=== PATIENT | female | born 1985 | race American Indian/Alaskan Native ===

== ENCOUNTER 2019-02-04 21:32 | Emergency (ER) | payer OTHER, SELFPAY ==
[2019-02-04 21:44] VITALS: BP 131/87; PULSE 109; RESP 18; TEMP 36.6; O2SAT 98
[2019-02-04 22:13] LABS: Influenza A and B by PCR Rapid Negative (Negative)
--- NOTE | 2019-02-04 22:53 | ED.FEVER ---
HPI - Fever General Chief Complaint: Fever Stated Complaint: low fever,sore throat, body aches Time Seen by Provider: 02/04/19 22:49 Source: patient Mode of arrival: Ambulatory Limitations: no limitations History of Present Illness HPI Narrative: 33-year-old female here for evaluation approximately 24 hours of sore throat, sinus congestion, no cough, body aches, fevers. Has not tried anything for symptoms prior to arrival. Related Data Home Medications Medication Instructions Recorded Confirmed metformin [Glucophage XR] 1,000 BID #0 01/05/13 Previous Rx's Medication Instructions Recorded azithromycin 250 mg PO DAILY 4 Days #4 tab 02/04/19 Allergies Allergy/AdvReac Type Severity Reaction Status Date / Time erythromycin base Allergy Unknown Unverified 07/13/17 11:45 [From ERYTHROCIN] Penicillins [PENICILLINS] Allergy Unknown Unverified 07/13/17 11:45 BEE STING Allergy Unknown Uncoded 07/13/17 11:45 Review of Systems Constitutional Constitutional: Reports fever(s) ENT Ears, Nose, Mouth, and Throat: Denies vertigo, Denies dizziness, Reports sinus pressure, Reports sore throat, Reports throat swelling and Denies tongue swelling Respiratory Respiratory: Denies cough Gastrointestinal Gastrointestinal: Denies abdominal pain and Denies vomiting Musculoskeletal Musculoskeletal: Denies arthralgias Integumentary/Breasts Skin/Breast: Denies rash Neurologic Neurologic: Denies vertigo and Denies dizziness Hematologic/Lymphatic Hematologic/Lymphatic: Denies easy bleeding and Denies easy bruising Allergic/Immunologic Allergic/Immunologic: Reports throat swelling and Denies tongue swelling Patient History Medical History Patient denies medical problems (Acute) Surgical History (Updated 08/02/17 @ 04:58 by Conversion Provider) History of tonsillectomy Status post delivery Social History Smoking Status: Current some day smoker Exam Initial Vital Signs Initial Vital Signs: Vital Signs Temperature 97.9 F 02/04/19 21:44 Pulse Rate 109 H 02/04/19 21:44 Respiratory Rate 18 02/04/19 21:44 Blood Pressure 131/87 02/04/19 21:44 Pulse Oximetry 98 02/04/19 21:44 Const General: cooperative, comfortable and well developed Orientation: alert, awake and oriented x3 HENMT Head: normal to inspection and normocephalic Ears: TM abnormal bulging Mouth: oral mucosae normal Throat: posterior oropharynx normal Resp Effort & Inspection: normal respiratory effort Auscultation: clear to auscultation bilaterally Cardio Rate: regular rate Rhythm: regular rhythm Skin Lesions: no lesions Rashes: no rashes Neuro General: alert and awake Cognition: normal cognition Speech: speech normal Extrem General: normal to inspection and capillary refill normal Psych Appearance: grossly normal and well kempt Course Orders Ordered: ED Orders 02/04/19 21:50 Influenza A and B by PCR Rapid Stat Discontinued Medications Azithromycin (Zithromax) 500 mg PO NOW ONE Stop: 02/04/19 22:55 Last Admin: 02/04/19 23:07 Dose: 500 mg Documented by: RUTH Vital Signs Vital signs: Vital Signs - 8 hr 02/04/19 21:44 02/04/19 23:13 Temperature 97.9 F Pulse Rate 109 H 100 H Respiratory Rate 18 16 Blood Pressure 131/87 128/62 Pulse Oximetry 98 98 MDM - Fever Lab Data Attestation: I reviewed the patient's lab results. Labs: Lab Results 02/04/19 Range/Units 21:50 Influenza A & B (PCR) Negative (Negative) Point of Care Testing Rapid Strep A Positive MDM Narrative Medical decision making narrative: Patient has a relatively benign exam. She has no tonsillar exudates. Her strep test is positive which does explain her presenting symptoms. She is allergic to penicillin. She was given a 1st dose of azithromycin here in the emergency department sent home with a prescription for the remainder. She is given return precautions and follow-up instructions. There is no signs of peritonsillar abscess or retropharyngeal abscess. No indication for radiologic studies. Discharge Plan Departure Patient Disposition: Home Clinical Impression: Acute streptococcal pharyngitis, Sinus congestion Discharge Date/Time: 02/04/19 23:13 Instructions: DI for Strep Throat Activity Restrictions/Additional Instructions: Take the antibiotics as directed. Also recommend that you continue with the Claritin at home. Also recommend you start with either Flonase or Nasonex. Return to the emergency department for any new or worsening symptoms Prescriptions: New azithromycin 250 mg tablet 250 mg PO DAILY 4 Days Qty: 4 RF: 0 No Action metformin [Glucophage XR] 500 MG tablet extended release 24 hr 1,000 BID Qty: 0 RF: 0 Referrals: Durga Salas MD [Primary Care Provider] -
[2019-02-04] MEDS: AZITHROMYCIN 250 MG TABLET 500 MG PO (23:07)
[2019-02-04 23:13] VITALS: BP 128/62; PULSE 100; RESP 16; O2SAT 98
== END 2019-02-04 23:13 | disposition home or self-care (01) ==
PROVIDERS: Emergency Provider Emergency Medicine; PCP Family Medicine
DX: J02.0 Streptococcal pharyngitis (principal); R09.81 Nasal congestion
CPT/HCPCS: 87502; 87880; 99282; 99283

== ENCOUNTER → 2024-09-07 15:33 | Outpatient (CLI) | payer BC, SELFPAY ==
--- NOTE | 2024-09-07 15:37 | DI.RAD.S_ITS ---
PROCEDURE: XR ANKLE LT MIN 3V INDICATIONS: L ANKLE PAIN TECHNIQUE: 3 views of the ankle were acquired. COMPARISON: None. FINDINGS: Possible pes planus consider weight-bearing images. Mild degenerative changes at the tibiotalar, talonavicular, calcaneocuboid joints with joint space narrowing and small osteophytes. No radiographic evidence of displaced fracture, dislocation or high attenuation soft tissue foreign body. IMPRESSION: Possible pes planus. Degenerative changes. If symptoms persist or worsen, or there is high clinical suspicion of left ankle/foot abnormality, MRI could be performed. Dictated by: Amarjit Keller M.D. on 09/08/2024 at 13:14 Approved by: Amarjit Keller M.D. on 09/08/2024 at 13:20
== END ==
LOC: RAD 15:36
PROVIDERS: Referring Provider Nurse Practitioner Family; Visit Provider Nurse Practitioner Family
DX: M25.572 Pain in left ankle and joints of left foot (principal)
CPT/HCPCS: 73610

== ENCOUNTER → 2024-12-18 08:34 | Outpatient (CLI) | payer BC, SELFPAY ==
--- NOTE | 2024-12-18 08:35 | DI.US.S_ITS ---
PROCEDURE: US PELVIC COMPLETE INDICATIONS: AMENORRHEA TECHNIQUE: Real-time scanning was performed of the pelvic organs, with image documentation. Additional endovaginal scanning was necessary due to incomplete visualization of the adnexal and endometrial structures by transabdominal scanning. COMPARISON: None. FINDINGS: Uterus: Uterus is anteverted and normal in size at 4.2 x 2.2 x 4.4 cm. The myometrium is homogeneous. The endometrium measures 4.2 mm combined thickness. No endometrial mass. Ovaries: The ovaries are not visualized due to bowel gas and cannot be evaluated. Other: No pathologic free abdominal or pelvic fluid. IMPRESSION: Uterus is sonographically normal. Ovaries not visualized and cannot be evaluated. Dictated by: Arminda Barros MD, PhD on 12/18/2024 at 13:00 Approved by: Arminda Barros MD, PhD on 12/18/2024 at 13:02
== END ==
PROVIDERS: PCP Nurse Practitioner Family; Referring Provider Nurse Practitioner Family; Visit Provider Nurse Practitioner Family
DX: N91.2 Amenorrhea, unspecified (principal)
CPT/HCPCS: 76830; 76856